=== PATIENT | male | born 1940 | race Caucasian/White ===

== ENCOUNTER 2023-04-26 15:09 | Outpatient (RCR) | payer OTHER, SELFPAY | END 2023-04-26 23:59 | disposition home or self-care (01) | LOC: CRHB 15:09 | PROVIDERS: ATTENDING PHYSICIAN Internal Medicine Cardiovascular Disease; FAMILY PHYSICIAN Family Medicine | DX: I25.10 Atherosclerotic heart disease of native coronary artery without angina pectoris (principal); Z95.1 Presence of aortocoronary bypass graft; Z95.4 Presence of other heart-valve replacement | CPT/HCPCS: G0422; G0423 ==

== ENCOUNTER 2023-05-19 19:28 | Observation (INO) | payer OTHER, SELFPAY ==
[2023-05-19] VITALS (8 sets, daily range): BP systolic 117–151; BP diastolic 72–99; PULSE 67–87; BMI 25.8; BMI 25.3
[2023-05-19 15:20] LABS: % Basophils 0.3 % (0-2); % Eosinophils 0.4 % (0-6); % Immature Granulocytes 0.3 % (0-0.5); % Lymphocytes 18.4 % (20.5-51.1); % Monocytes 7.6 % (1.7-9.3); Absolute Lymphocytes 1.3 10^3/uL (1.2-3.4); Absolute Monocytes 0.5 10^3/uL (0.1-0.6); Hematocrit 39.6 % (39.0-52.0); Mean Corp Hgb Conc. 35.4 g/dL (33.0-37.0); Mean Corpuscular Hgb 29.7 pg (27.0-31.0); Mean Corpuscular Volume 83.9 fL (80.0-94.0); Mean Platelet Volume 8.7 fL (7.4-10.4); Nucleated Red Blood Cells % 0 % (-); Platelet Count 196 10^3/uL (130-400); Red Blood Cell Count 4.72 10^6/uL (4.70-6.10); Red Cell Dist. Width 14.2 % (11.5-14.5); White Blood Cell Count 6.8 10^3/uL (4.8-10.8)
[2023-05-19 15:39] LABS: ALT (SGPT) < 10 U/L (0-50); AST (SGOT) 16 U/L (17-59); Albumin 3.5 g/dl (3.5-5.0); Alkaline Phosphatase 87 U/L (38-126); Blood Urea Nitrogen 24 mg/dl (9-20); Carbon Dioxide 25 mmol/L (22-30); Chloride 101 mmol/L (98-107); Glucose 97 mg/dl (70-99); Potassium 4.3 mmol/L (3.5-5.1); Sodium 134 mmol/L (135-145); Total Bilirubin 1.1 mg/dl (0.2-1.3); Total Protein 6.5 g/dl (6.3-8.2); eGFR > 60.00
[2023-05-19 15:50] LABS: Troponin I 0.114 ng/ml
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
[2023-05-19] MEDS: LOW STRENGTH ASPIRIN 243 MG PO (17:15)
--- NOTE | 2023-05-19 17:18 | EDRN ---
cardiology currently at the pts bedside speaking with the pt and the pts family
--- NOTE | 2023-05-19 17:42 | ED.GENMED ---
History of Present Illness
General
Chief Complaint: Weakness
Source: patient, spouse and family
Exam Limitations: none
Time Seen by Provider: 05/19/23 16:03
Nursing documentation reviewed up to this point in time: agreed with
Travel History
Have you had any contact with someone who has COVID-19?: No
Do you have any symptoms of coronavirus? Fever > 100 degrees, chills, cough, shortness of breath, sore throat, loss of taste or smell, muscle aches, or headache?: No
History of Present Illness
History of Present Illness:
82-year-old male with [place] history of recent CABG 9 months ago, A-fib previously on Amio CHF hypertension hyperlipidemia presenting from cardiac rehab after he had an event where he felt weak and felt like he was going to fall over. Was sent to
the ER otherwise without chest pain shortness of breath no emergent symptoms at this time
Review of Systems
Review of Systems
Allergies reviewed?: Yes
All Other Systems: ROS reviewed and negative except as documented in HPI and ROS
Phy Exam
Physical Exam
Physical Exam:
GENERAL: Alert , in no apparent distress
EYE: pupils equal and reactive
NECK: Supple, no significant adenopathy.
ENT: o/p clr, mmm.
CARDIAC: Regular rate and rhythm .
LUNGS: Clear breath sounds bilaterally, no acute respiratory distress, no wheezes/rales/rhonchi
ABDOMEN: Soft, without focal tenderness, no r/g, no cvat
NEUROLOGICAL: Alert and oriented, no focal neuro deficits
SKIN: Warm and dry, skin intact.
MUSCULOSKELETAL: No edema, well perfused.
PSYCH: Normal and appropriate interaction.
Course
Orders/Labs/Results
Orders:
Orders
05/19/23 15:00
EKG [Electrocardiogram (*1)] Urgent
Reason for Study: Vertigo / Dizzy
EKG- Treatment ONCE
05/19/23 15:12
Complete Blood Count/With Diff Urgent
Comprehensive Metabolic Panel Urgent
Troponin I Urgent
05/19/23 16:15
Chest [CR Chest - 2 Views ] Urgent
Comment:
Reason For Exam: elevated trop
05/19/23 16:36
Aspirin Chewable [Low Strength Aspirin] 243 mg PO NOW STA
05/19/23 17:24
Troponin I Urgent
Abnormal Lab Results
05/19/23
15:12
Lymphocytes % 18.4 L %
(20.5-51.1)
Sodium 134 L mmol/L
(135-145)
BUN 24 H mg/dl
(9-20)
AST 16 L U/L
(17-59)
Troponin I 0.114 H* ng/ml
05/19/23 15:12
05/19/23 15:12
Vital Signs
Initial and Last Documented VS:
Initial Vital Signs
Temp Pulse Resp Pulse Ox
98.2 F 80 18 99
05/19/23 14:51 05/19/23 14:51 05/19/23 14:51 05/19/23 14:51
Last Documented Vital Signs
Temp Pulse Resp BP Pulse Ox
98.2 F 70 15 137/85 99
05/19/23 14:51 05/19/23 16:45 05/19/23 16:45 05/19/23 16:14 05/19/23 16:45
MDM/Problems Addressed
MDM/Problems Addressed:
83-year-old male presenting to the emergency department today after he became weak at cardiac rehab. Vital signs normal upon arrival EKG without obvious ischemia troponin elevated to 0.11. Case discussed with cardiology that saw the patient plan
to admit for further monitoring and assessment. Of note patient does have a significant history of heart disease had CABG done last year. No chest pain at any point today. Was given an aspirin here.
*Critical Care Note
Total Time (30-74mins, 75-104mins- exclusive of procedures): Not Applicable
ED Attending Note
-
Portions of this chart may have been created with voice recognition software.� Occasional wrong word or��sound alike� substitutions may have occurred due to the inherent limitations of voice recognition software.
Discharge Plan
Departure
Patient Disposition: Admit
Date of Disposition: 05/19/23
Time of Disposition: 17:44
Admit to: Telemetry
Admit to doctor: Richard
Presentation/result/management discussed w/ accepting MD/DO: Hospitalist
Patient with high blood pressure during this ER visit?: No
Condition: Good
Covid-19: Not Applicable
Discharge Problem:
Elevated troponin
Prescriptions:
No Action
amiodarone 200 mg Tablet
200 mg PO DAILY
aspirin 81 mg Tablet,Delayed Release (Dr/Ec)
81 mg PO DAILY
Eliquis 5 mg Tablet
5 mg PO BID
Interventions
Interventions:
*Risk Screen - Suicide Last Done: 05/19/23 16:17
*General Assessment Last Done: 05/19/23 14:51
*Neglect/Abuse Screening Last Done: 05/19/23 16:17
ED- Fall Risk Assessment Last Done: 05/19/23 16:17
*ED COVID-19 Vaccine History Last Done: 05/19/23 14:51
ED- Cardiac Assessment Last Done: 05/19/23 16:17
ED- Neurological Assessment Last Done: 05/19/23 16:17
ED- Pulmonary Assessment Last Done: 05/19/23 16:17
[2023-05-19 18:00] LABS: Troponin I 0.113 ng/ml
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
[2023-05-19 18:54] LABS: COVID-19 Antigen Negative (Negative)
[2023-05-19] MEDS: ELIQUIS 5 MG PO (21:48)
--- NOTE | 2023-05-20 01:51 | PTCARENOTE ---
Patient arrived on unit @2056 via stretcher from ED, ambulate from stretcher to bed. Patient AAOx3 c/o general weakness, no c/o pain or discomfort. Patient's skin assessment completed, oriented to unit, call [place]a within reach.
[2023-05-20 03:10] VITALS: BP 111/61
[2023-05-20 06:00] VITALS: BMI 25.1
[2023-05-20 06:36] LABS: Blood Urea Nitrogen 21 mg/dl (9-20); Calcium 8.4 mg/dl (8.4-10.2); Carbon Dioxide 26 mmol/L (22-30); Chloride 106 mmol/L (98-107); Estimated Creatinine Clearance 52 ml/min; Glucose 99 mg/dl (70-99); Sodium 135 mmol/L (135-145); eGFR > 60.00
[2023-05-20 07:30] VITALS: BP 116/71
[2023-05-20] MEDS: ASPIR LOW (ENTERIC COATED) 81 MG PO (08:57)
[2023-05-20] MEDS: PACERONE 200 MG PO (08:57)
[2023-05-20] MEDS: ELIQUIS 5 MG PO (08:57)
--- NOTE | 2023-05-20 10:00 | W.PN.HOSP.TC ---
Addendum entered and electronically signed by Chris Hernandez DO 05/20/23 13:09:
Free T4 normal at 1.01. TSH 10.2. Subclinical hypothyroidism, would not initiate levothyroxine just yet. Recommend follow-up with PCP and repeat labs. Decision needs to be made about whether to continue amiodarone as this may interfere with his
thyroid function as well.
Cleared by PT and OT for discharge. Resume cardiac rehab.
Discharge home today.
Original Note:
Today's Communication/Plan
-
Check free T4
PT/OT
Assessment / Plan
Assessment / Plan
Gen-AAOx3, NAD
HEENT-NC, AT, anicteric, clear oral mm
Neck-supple
CV-reg, no M, +S1/S2
Lungs-clear B/L
Abd-soft, NT, ND
Ext-no edema
Musculoskeletal-no cyanosis, clubbing
Skin-warm and dry
Neuro-grossly non-focal
Psych-calm, cooperative
Generalized weakness/gait dysfunction -etiology unclear but differential diagnosis includes deconditioning.� Await PT/OT input. Patient complaining of gait unsteadiness. Orthostatics negative.
Hypothyroidism -TSH noted to be over 10. Await free T4. Perhaps hypothyroidism is contributing to his generalized weakness.
Troponin elevation -suspect non-[place] troponin elevation of unclear etiology.� EKG with sinus rhythm with first-degree AV block, left anterior fascicular block, nonspecific ST-T wave changes.� Patient denies any chest pain or shortness of breath.�
Repeat troponin trending down.� Cardiology input appreciated.
Hyponatremia -sodium 135 today, improving.�
History of stroke 2019
CAD/CABG -stable.
Paroxysmal atrial fibrillation -continue Eliquis.� Amiodarone per cardiology.
Essential hypertension -stable.
Hyperlipidemia -not on statin due to patient wishes. He wants to minimize medications.
Chronic heart failure preserved EF -stable.
Full code
Anticipated Discharge: Today
Subjective/Interval History
-
Date of Service: May 20, 2023
Patient seen and examined. No new complaints.
Objective Data
-
Labs:
Laboratory Results
05/20/23
05:14
Sodium 135
Potassium 4.0
Chloride 106
Carbon Dioxide 26
BUN 21 H
Creatinine 1.1
Glucose 99
Calcium 8.4
Vital Signs:
Vital Signs
Temp Pulse Resp BP Pulse Ox
97.8 F 78 14 116/71 97
05/20/23 07:30 05/20/23 07:30 05/20/23 07:30 05/20/23 07:30 05/20/23 07:30
I&O
05/19/23 05/20/23 05/21/23
06:59 06:59 06:59
Intake Total 120 / 120
Output Total 415 / 415
Balance -295 / -295
Review of Systems
-
History Source: Patient
All other systems: Reviewed and negative
[2023-05-20 11:20] VITALS: BP 137/90
--- NOTE | 2023-05-20 11:35 | CM ---
Addendum entered by Kojo Collado 05/20/23 13:12:
Discharge order noted.
Pt is aware, talking to his spouse who will transport pt home.
Pt stated he got a script for outpatient cardiac rehab.
D/C plan: home with resumptions of Cardiac rehab at . Spouse to transport.
Original Note:
CM following re: discharge planning.
Reviewed pt's chart, met with pt.
Pt is an 82 year old male, admitted with OBS status and primary concerns of generalized weakness. OBS status has been explained to the pt, pt expressed his understanding, CORREIA letter signed, placed in chart, pt has a copy.
Pt reports he lives with spouse 2SH, 2 steps to enter has 3 supportive children and 3 stepchildren. pt described himself as independent in all areas SALON COORDINATOR, uses a cane when goes outside, has a walker. Pt reports he is receiving outpatient cardiac
rehab and he will stay in the program another month. Pt reports he had [facility] in the past. No SNF history.
PT and OT evaluations noted - home PT/OT recommended. Pt is aware and pt preferred to resume outpatient cardiac rehab and pt stated his spouse will transport. Pt will need a script for outpatient cardiac rehab.
PCP: Raf Lopez
Pharmacy: [facility].
D/C plan: home with resumptions of outpatient cardiac rehab and family support. Spouse to transport at discharge.
CM will follow with discharge plan updates as hospitalization progresses
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
[2023-05-20 12:44] LABS: Free T4 1.01 ng/dl (0.78-2.19)
--- NOTE | 2023-05-20 13:07 | W.DS.TRANS ---
DC Summary - Barrel Repairer
-
Discharge Instructions:
Sleep Apnea Risk Intermediate
Discharge Diagnosis/Procedures Gait dysfunction, generalized weakness,
hypothyroidism
Diet Low Cholesterol,Low Fat
Activity As tolerated
Driving Restrictions As prior to admission
Bathing Restrictions None
Other Services Cardiac Rehab
Instructions:
Stand-Alone Forms:
Changes to Home Medications: No
Discharge Medications:
DC Medications w/original date entered in [facility]
amiodarone 200 mg tablet 200 mg PO DAILY Heart Failure 05/19/23
apixaban 5 mg tablet (Eliquis) 5 mg PO BID Blood Clot Prevention/Tx 05/19/23
aspirin 81 mg tablet,delayed release 81 mg PO DAILY Blood Clot Prevention/Tx 05/19/23
Home Medication Changes
Pending Results: No
== END 2023-05-20 17:27 | disposition home or self-care (01) ==
LOC: 3 WEST ACU 19:28
PROVIDERS: Physician Assistant; ADMITTING PHYSICIAN Hospitalist; CONSULT PHYSICIAN Internal Medicine Cardiovascular Disease; EMERGENCY PHYSICIAN Emergency Medicine; FAMILY PHYSICIAN Family Medicine
DX: R53.1 Weakness (principal); R42 Dizziness and giddiness; R26.9 Unspecified abnormalities of gait and mobility; E03.9 Hypothyroidism, unspecified; I5A Non-ischemic myocardial injury (non-traumatic); E87.1 Hypo-osmolality and hyponatremia; I48.0 Paroxysmal atrial fibrillation; I50.32 Chronic diastolic (congestive) heart failure; I11.0 Hypertensive heart disease with heart failure; I25.10 Atherosclerotic heart disease of native coronary artery without angina pectoris; Z95.1 Presence of aortocoronary bypass graft; Z88.8 Allergy status to other drugs, medicaments and biological substances; Z79.01 Long term (current) use of anticoagulants; Z79.82 Long term (current) use of aspirin; Z86.73 Personal history of transient ischemic attack (TIA), and cerebral infarction without residual deficits; Z11.52 Encounter for screening for COVID-19
CPT/HCPCS: 71046; 80048; 80053; 84439; 84443; 84484; 85025; 87811; 93005; 97162; 99285; G0378

== ENCOUNTER 2023-05-24 15:03 | Outpatient (RCR) | payer OTHER, SELFPAY ==
[2023-05-19 14:17] LABS: Glucose - Point of Care 96 mg/dl (70-99)
== END 2023-05-24 23:59 | disposition home or self-care (01) ==
LOC: CRHB 15:03
PROVIDERS: ATTENDING PHYSICIAN Internal Medicine Cardiovascular Disease; FAMILY PHYSICIAN Family Medicine
DX: I25.10 Atherosclerotic heart disease of native coronary artery without angina pectoris (principal); Z95.1 Presence of aortocoronary bypass graft; Z95.4 Presence of other heart-valve replacement
CPT/HCPCS: 82962; G0422; G0423

== ENCOUNTER 2023-06-14 13:12 | Outpatient (RCR) | payer OTHER, SELFPAY | END 2023-06-14 23:59 | disposition home or self-care (01) | LOC: CRHB 13:12 | PROVIDERS: ATTENDING PHYSICIAN Internal Medicine Cardiovascular Disease; FAMILY PHYSICIAN Family Medicine | DX: Z95.1 Presence of aortocoronary bypass graft (principal); Z95.4 Presence of other heart-valve replacement | CPT/HCPCS: G0422; G0423 ==